=== PATIENT | male | born 1985 | race African-American/Black ===

== ENCOUNTER 2020-04-22 16:19 | Inpatient (IN) | payer MEDICAID, OTHER ==
[~2020-04-22] VITALS: Ht 188 cm; Wt 116.6 kg
[2020-04-22] MEDS ORDERED: ALBUTEROL 90 MCG/ACT 8GM HFA INHALER INH ONE (16:45)
[2020-04-22 16:59] LABS: BASO # 0.1 10^3/uL (0.0-0.2); EOS # 0.5 10^3/uL (0.0-0.5); EOS % 8.9 % (0.0-3.0); HEMATOCRIT 44.4 % (42.0-52.0); HEMOGLOBIN 14.2 g/dl (13.5-17.5); LYMPH # 1.8 10^3/uL (1.5-5.0); LYMPH % 28.7 % (24.0-44.0); MEAN CORPUSCULAR HEMOGLOBIN 26.3 pg (27.0-33.0); MEAN CORPUSCULAR VOLUME 82.2 fl (80.0-96.0); MONO # 0.5 10^3/uL (0.0-0.8); MONO % 7.9 % (0.0-5.0); NEUTROPHILS # 3.3 10^3/uL (1.5-8.5); NEUTROPHILS % 53.3 % (36.0-66.0); PLATELET COUNT, AUTOMATED 259 10^3/uL (150-450); WHITE BLOOD COUNT 6.1 10^3/uL (4.0-10.0)
[2020-04-22 17:16] LABS: BLOOD UREA NITROGEN 17 MG/DL (7-18); CALCIUM LEVEL 9.4 MG/DL (8.5-10.1); CARBON DIOXIDE LEVEL 26 MEQ/L (21-32); CHLORIDE LEVEL 107 MEQ/L (98-107); CREATININE FOR GFR 0.91 MG/DL (0.70-1.30); GLOMERULAR FILTRATION RATE > 60.0 (>60); GLUCOSE, FASTING 86 MG/DL (70-100); POTASSIUM SERUM 3.9 MEQ/L (3.5-5.1); SODIUM LEVEL 141 MEQ/L (136-145)
[2020-04-22] MEDS ORDERED: ISOVUE-370 76% 100ML VIAL As Ordered ONE (17:19)
--- NOTE | 2020-04-22 18:15 | REPVR ---
PROCEDURE INFORMATION: Exam: CT Chest With Contrast Exam date and time: 04/22/2020 5:28 PM Age: 34 years old Clinical indication: Abnormal findings; Abnormal radiologic exam of lung or chest; Shortness of breath and wheezing; Additional info: SOB, wheezing, XR today shows lll collapse TECHNIQUE: Imaging protocol: Computed tomography of the chest with intravenous contrast. 3D rendering (Not supervised by radiologist): MIP and/or 3D reconstructed images were created by the technologist. Radiation optimization: All CT scans at this facility use at least one of these dose optimization techniques: automated exposure control; mA and/or kV adjustment per patient size (includes targeted exams where dose is matched to clinical indication); or iterative reconstruction. Contrast material: ISOVUE 370; Contrast volume: 75 ml; Contrast route: INTRAVENOUS (IV); COMPARISON: AR Chest, 2 view PA, Lat 04/22/2020 9:22 AM FINDINGS: Lungs: There is complete atelectasis of the left lower lobe. There is abnormal soft tissue completely obstructing the left lower lobe bronchus. This extends into the left main bronchus which is almost completely obstructed. This has a polypoid appearance, series 203 images 54-56. Pleural space: Unremarkable. No pneumothorax. No pleural effusion. Heart: Unremarkable. No cardiomegaly. No pericardial effusion. Pulmonary arteries: There are no pulmonary artery emboli. Aorta: No thoracic aortic aneurysm or dissection. Lymph nodes: Unremarkable. No enlarged lymph nodes. Bones/joints: Unremarkable. No acute fracture. Soft tissues: Unremarkable. IMPRESSION: Complete atelectasis of the left lower lobe. There is abnormal soft tissue density within the left lower lobe bronchus extending into the left mainstem bronchus which is almost completely occluded. The appearance within the left lower lobe bronchus could represent mucoid impaction. The extension into the left main stem bronchus has a rounded appearance which appears polypoid and is suspicious for a mass. Further evaluation will likely require bronchoscopy. Electronically signed by: Jamal Colby On 04/22/2020 18:15:24 PM
[2020-04-22] MEDS ORDERED: IPRATROPIUM 0.5MG/ALBUTEROL 2.5MG INH SOL UD 3ML (DUONEB) NEB PRN (18:45)
[2020-04-22] MEDS ORDERED: methylPREDNISolone 125MG 2ML VIAL IV ONE (18:45)
[2020-04-22] MEDS ORDERED: PROAAER10 INH (19:09)
[2020-04-22] MEDS ORDERED: ALB2.5NEB INH (19:09)
--- NOTE | 2020-04-22 19:29 | HPEPDOC ---
[facility] Medical History & Physical Date of Admission Apr 22, 2020 Date of Service: Apr 22, 2020 Other Provider Elias MEZA Attending Physician: GRACIELA ALEJANDRE MD History and Physical TIME OF SERVICE: 745pm CHIEF COMPLAINT: Shortness of breath HISTORY OF PRESENT ILLNESS: This 34-year-old, smoker, has been having a productive cough for the last year. Over the last week he had difficulties coughing up any sputum and developed wheezing that was worse with exertion. At the [facility] facility, he had an x- ray which showed left lower lobe collapse and was sent to the ER for additional testing. He has a history of childhood asthma which is been under control for the last several years; he rarely uses an inhaler takes his best peak flow is in the "yellow zone". In the ER he received albuterol, DuoNeb's, and Solu-Medrol but is still wheezing. REVIEW OF SYSTEMS: 12 point review of systems negative except as listed in HPI PAST MEDICAL/ SURGICAL HISTORY: Childhood Asthma Seasonal allergies SOCIAL HISTORY: Former smoker Drains alcohol socially Denies recreational drug use FAMILY HISTORY: Hypertension ALLERGIES: Please see below. HOME MEDICATIONS: Please see below. PHYSICAL EXAMINATION: VITAL SIGNS: Please see below. PEAK FLOW: best bedside peak flow 450 L/min (expected for height and age is approximately 635 L/min) GEN: well nourished / well developed/ NAD INTEGUMENT: lips not cyanotic HEENT: mucus membranes moist and pink / sclera anicteric CVS: RRR/ radial pulses intact / no lower extremity edema LUNGS: there is no nasal flaring / he is able to speak full sentences without stopping to take a breath / he is not using accessory muscles / there is normal respiratory expansion/ he has prominent expiratory wheezing MSK/EXTREMITIES: NCAT / wrists and ankles are in cuffs NEURO: CN 2-12 are grossly intact / speech is not dysarthric PSYCH: alert and oriented to person place and time/ able to understand and follow all commands LABORATORY DATA: 04/22/20 16:48 Immature Granulocyte % (Auto) 0.2, Neutrophils (%) (Auto) 53.3, Lymphocytes (%) (Auto) 28.7, Monocytes (%) (Auto) 7.9H, Eosinophils (%) (Auto) 8.9H, Basophils (%) (Auto) 1.0, Neutrophils # (Auto) 3.3, Lymphocytes # (Auto) 1.8, Monocytes # (Auto) 0.5, Eosinophils # (Auto) 0.5, Basophils # (Auto) 0.1, Nucleated Red Blood Cells % (auto) 0.0, Anion Gap 8, Glomerular Filtration Rate > 60.0, Calcium Level 9.4 04/22/20 19:05: POC pH (Misc Panel) 7.387, POC Base Excess (Misc Panel) -2.0, POC Saturated Percent O2 (Misc) 95, POC pO2 (Misc Panel) 77.0L, POC pCO2 (Misc Panel) 39.0, POC HCO3 (Misc Panel) 23.5, POC Total CO2 (Misc Panel) 25.0 IMAGING: CT chest "IMPRESSION: Complete atelectasis of the left lower lobe. There is abnormal soft tissue density within the left lower lobe bronchus extending into the left mainstem bronchus which is almost completely occluded. The appearance within the left lower lobe bronchus could represent mucoid impaction. The extension into the left main stem bronchus has a rounded appearance which appears polypoid and is suspicious for a mass. Further evaluation will likely require bronchoscopy." MICROBIOLOGY: 04/22/20 Respiratory Virus Panel (PCR) ([facility]), Received Pending ASSESSMENT: Mr. Newman is a 34-year-old former smoker with a history of childhood asthma, seasonal allergies who has noticed a change in his chronic productive cough and wheezing over the last week. He was sent from the [facility] facility for evaluation of left lower lung collapse; CT showed complete collapse of the left lower lobe with a soft tissue density that is suspicious for mass. PLAN: 1. Mild Acute Asthma Trigger possibly bronchospasm? Peak flow today is about 70% of expected (450L/min vs expected 635 L/min for age and height) Peripheral smear showed 8.9% eosinphils ABG was only remarkable for a PO2 of 77 O2 sats wnl on RA Reason to admit: patient has risk factor for relapse Plan: admit to med surg w telemetry & continuos pulse ox / IV Magnesium now / supplemental O2 / monitor peak flow after neb treatments / Dunebs Q6H, Albuterol Q1H PRN/ Prednisone w PPI to prevent steroid induced ulcer / f/u respiratory panel results 2 Complete LLL atelectasis w possible obstructing mass vs mucus plug Plan: Chest PT w nebs tonight / Consulted for possible bronch 3 High BMI Suspect the patient's high BMI 34.1 is because of his muscle mass rather than d ue to obesity Plan: f/u A1C DVT Px w Lovenox Dispo:will be released into police custody after more than 2 midnight's stay Home Medications Scheduled PRN Albuterol Sulfate (Albuterol Sulfate) 2.5 Mg/0.5 Ml Vial.neb, 2.5 MG INH Q4H PRN for SHORTNESS OF BREATH Albuterol Sulfate (Proair Hfa) 8.5 Gm Hfa.aer.ad, 2 PUFF INH Q4H PRN for S HORTNESS OF BREATH Allergies Coded Allergies: shellfish derived (Verified Allergy, Mild, SWELLING, 04/22/20) A-FIB/CHADSVASC A-FIB History Current/History of A-Fib/PAF?: No Current PO Anticoag Therapy: No GRACIELA ALEJANDRE MD Apr 22, 2020 19:29
[2020-04-22] MEDS ORDERED: ACETAMINOPHEN TAB 650MG DOSE (2X325MG) PO PRN (19:30)
[2020-04-22] MEDS ORDERED: MOM 30ML SUSPENSION UDC PO PRN (19:30)
[2020-04-22] MEDS ORDERED: MAALOX 30 ML SUSP *UDC PO PRN (19:30)
[2020-04-22] MEDS ORDERED: MAG SULF 1GM/100ML (MAG RUN) 1 GM in IV 1 EA IV ONE (19:45)
[2020-04-22 21:15] VITALS: BP 122/88
[2020-04-22] MEDS: IPRATROPIUM 0.5MG/ALBUTEROL 2.5MG INH SOL UD 3ML (DUONEB) NEB SCH (21:32)
[2020-04-22 22:00] VITALS: O2SAT 93
[2020-04-22 23:00] VITALS: O2SAT 97
[2020-04-23] VITALS (11 sets, daily range): BP systolic 116–144; BP diastolic 68–80; O2SAT 77–98
[2020-04-23] MEDS: IPRATROPIUM 0.5MG/ALBUTEROL 2.5MG INH SOL UD 3ML (DUONEB) NEB SCH ×7 (01:49→23:41)
[2020-04-23 05:05] LABS: HEMATOCRIT 44.1 % (42.0-52.0); HEMOGLOBIN 14.1 g/dl (13.5-17.5); MEAN CORPUSCULAR HEMOGLOBIN 26.1 pg (27.0-33.0); MEAN CORPUSCULAR VOLUME 81.7 fl (80.0-96.0); PLATELET COUNT, AUTOMATED 259 10^3/uL (150-450)
[2020-04-23 05:25] LABS: BLOOD UREA NITROGEN 14 MG/DL (7-18); CARBON DIOXIDE LEVEL 24 MEQ/L (21-32); CHLORIDE LEVEL 107 MEQ/L (98-107); CREATININE FOR GFR 0.97 MG/DL (0.70-1.30); GLOMERULAR FILTRATION RATE > 60.0 (>60); GLUCOSE, FASTING 124 MG/DL (70-100); SODIUM LEVEL 139 MEQ/L (136-145)
--- NOTE | 2020-04-23 08:21 | IPNPDOC ---
Subjective Date Seen The patient was seen on 04/23/20. Subjective Chief Complaint/HPI Continues to have wheezing and feels that unable to catch his breath. Has some cough with phlegm production. No fever or chills. Objective Physical Examination General Exam: Positive: Alert, Cooperative, No Acute Distress Eye Exam: Positive: PERRLA, Conjunctiva & lids normal, EOMI; Negative: Sclera icteric ENT Exam: Positive: Atraumatic, Mucous membr. moist/pink, Pharynx Normal Neck Exam: Positive: Supple; Negative: JVD, thyromegaly Chest Exam: Positive: Rales, Rhonchi, Wheezing Heart Exam: Positive: Bradycardic, Regular Rhythm, Normal S1, Normal S2; Negative: Murmurs, Rubs Telemetry: Positive: No significant arrhythmia Abdomen Exam: Positive: Normal bowel sounds, Soft; Negative: Tenderness, Hepatospenomegaly Extremity Exam: Positive: Normal pulses; Negative: Clubbing, Cyanosis, Edema Skin Exam: Positive: Nl turgor and temperature; Negative: Rash, Breakdown Assessment /Plan Assessment Mr. Newman is a 34-year-old former smoker with a history of childhood asthma, seasonal allergies who has noticed a change in his chronic productive cough and wheezing over the last week. He was sent from the [facility] facility for evaluation of left lower lung collapse; CT showed complete collapse of the left lower lobe with a soft tissue density that is suspicious for mass. Mild Acute Asthma resp panel negative will continue with albuterol and budesonide Complete LLL atelectasis w possible obstructing mass vs mucus plug IMAGING: CT chest "IMPRESSION: Complete atelectasis of the left lower lobe. There is abnormal soft tissue density within the left lower lobe bronchus extending into the left mainstem bronchus which is almost completely occluded. The appearance within the left lower lobe bronchus could represent mucoid impaction. The extension into the left main stem bronchus has a rounded appearance which appears polypoid and is suspicious for a mass. Further evaluation will likely require bronchoscopy." Pulmonary has been consulted. Will need bronchoscopy. Sinus Bradycardia due to extremely well physical conditioning he work out regularly and has good muscle mass. Plan/VTE VTE Prophylaxis Ordered?: Yes VS, I&O, 24H, Fishbone Vital Signs/I&O Vital Signs Date Time Temp Pulse Resp B/P (MAP) Pulse Ox O2 Delivery O2 Flow Rate FiO2 04/23/20 08:01 2.0 04/23/20 07:00 96 Nasal Cannula 04/23/20 04:00 97.0 50 18 132/74 (93) I&O- Last 24 Hours up to 6 AM 04/23/20 06:00 Intake Total 900 ml Output Total 1450 ml Balance -550 ml Laboratory Data 24H LABS Laboratory Tests 2 04/22/20 16:48: Immature Granulocyte % (Auto) 0.2, Neutrophils (%) (Auto) 53.3, Lymphocytes (%) (Auto) 28.7, Monocytes (%) (Auto) 7.9H, Eosinophils (%) (Auto) 8.9H, Basophils (%) (Auto) 1.0, Neutrophils # (Auto) 3.3, Lymphocytes # (Auto) 1.8, Monocytes # (Auto) 0.5, Eosinophils # (Auto) 0.5, Basophils # (Auto) 0.1, Nucleated Red Blood Cells % (auto) 0.0, Anion Gap 8, Glomerular Filtration Rate > 60.0, Calcium Level 9.4 04/22/20 19:05: POC pH (Misc Panel) 7.387, POC Base Excess (Misc Panel) -2.0, POC Saturated Percent O2 (Misc) 95, POC pO2 (Misc Panel) 77.0L, POC pCO2 (Misc Panel) 39.0, POC HCO3 (Misc Panel) 23.5, POC Total CO2 (Misc Panel) 25.0 04/23/20 04:47: Nucleated Red Blood Cells % (auto) 0.0, Anion Gap 8, Glomerular Filtration Rate > 60.0, Calcium Level 9.0, Magnesium Level 2.0 CBC/BMP Laboratory Tests 04/22/20 16:48 04/23/20 04:47 Microbiology Microbiology 04/22/20 Respiratory Virus Panel (PCR) ([facility]) - Final, Complete SUDEEP PATEL MD Apr 23, 2020 08:21
[2020-04-23] MEDS: predniSONE 20 MG TAB PO SCH (08:49)
[2020-04-23] MEDS: PANTOPRAZOLE 40MG TAB (PROTONIX) PO SCH (08:49)
[2020-04-23] MEDS ORDERED: ENOXAPARIN 40MG/0.4ML SYRINGE (J1650 PER 10MG) SC SCH (09:00)
[2020-04-23] MEDS: ALBUTEROL SULFATE 2.5 MG/0.5 ML INH NEB SOLN NEB PRN ×2 (11:44→15:02)
[2020-04-23] MEDS: BUDESONIDE 0.5 MG/2 ML INHALATION SUSPENSION INH SCH ×2 (11:44→19:31)
[2020-04-23 13:13] LABS: PARTIAL THROMBOPLASTIN TIME 30.7 SECONDS (24.2-38.5)
[2020-04-23 13:16] LABS: PROTHROMBIN TIME 13.4 SECONDS (12.5-14.3)
[2020-04-24] VITALS: BP 137/78
[2020-04-24 04:00] VITALS: BP 158/78
[2020-04-24] MEDS: IPRATROPIUM 0.5MG/ALBUTEROL 2.5MG INH SOL UD 3ML (DUONEB) NEB SCH ×6 (04:09→23:09)
[2020-04-24 06:31] LABS: BLOOD UREA NITROGEN 16 MG/DL (7-18); CALCIUM LEVEL 8.6 MG/DL (8.5-10.1); CARBON DIOXIDE LEVEL 28 MEQ/L (21-32); CHLORIDE LEVEL 108 MEQ/L (98-107); CREATININE FOR GFR 1.07 MG/DL (0.70-1.30); GLOMERULAR FILTRATION RATE > 60.0 (>60); GLUCOSE, FASTING 95 MG/DL (70-100); POTASSIUM SERUM 3.7 MEQ/L (3.5-5.1); SODIUM LEVEL 142 MEQ/L (136-145)
[2020-04-24] MEDS: BUDESONIDE 0.5 MG/2 ML INHALATION SUSPENSION INH SCH ×2 (07:11→19:48)
[2020-04-24 08:00] VITALS: BP 150/76
[2020-04-24] MEDS: predniSONE 20 MG TAB PO SCH (08:50)
[2020-04-24] MEDS: PANTOPRAZOLE 40MG TAB (PROTONIX) PO SCH (08:50)
--- NOTE | 2020-04-24 09:57 | IPNPDOC ---
Subjective Date Seen The patient was seen on 04/24/20. Subjective Chief Complaint/HPI No issues overnight. Still has wheezing. SOB a little better Objective Physical Examination General Exam: Positive: Alert, Cooperative, No Acute Distress Eye Exam: Positive: PERRLA, Conjunctiva & lids normal, EOMI; Negative: Sclera icteric ENT Exam: Positive: Atraumatic, Mucous membr. moist/pink, Pharynx Normal Neck Exam: Positive: Supple; Negative: JVD, thyromegaly Chest Exam: Positive: Rales, Rhonchi, Wheezing Heart Exam: Positive: Bradycardic, Regular Rhythm, Normal S1, Normal S2; Negative: Murmurs, Rubs Telemetry: Positive: No significant arrhythmia Abdomen Exam: Positive: Normal bowel sounds, Soft; Negative: Tenderness, Hepatospenomegaly Extremity Exam: Positive: Normal pulses; Negative: Clubbing, Cyanosis, Edema Skin Exam: Positive: Nl turgor and temperature; Negative: Rash, Breakdown Assessment /Plan Assessment Mr. Newman is a 34-year-old former smoker with a history of childhood asthma, seasonal allergies who has noticed a change in his chronic productive cough and wheezing over the last week. [facility] of left lower lung collapse; CT showed complete collapse of the left lower lobe with a soft tissue density that is suspicious for mass. Mild Acute Asthma resp panel negative will continue with albuterol and budesonide Complete LLL atelectasis and collapse w possible obstructing mass vs mucus plug IMAGING: CT chest "IMPRESSION: Complete atelectasis of the left lower lobe. There is abnormal soft tissue density within the left lower lobe bronchus extending into the left mainstem bronchus which is almost completely occluded. The appearance within the left lower lobe bronchus could represent mucoid impaction. The extension into the left main stem bronchus has a rounded appearance which appears polypoid and is suspicious for a mass. Further evaluation will likely require bronchoscopy." Pulmonary has been consulted. bronchoscopy for 04/25/20 Plan/VTE VTE Prophylaxis Ordered?: Yes VS, I&O, 24H, Fishbone Vital Signs/I&O Vital Signs Date Time Temp Pulse Resp B/P (MAP) Pulse Ox O2 Delivery O2 Flow Rate FiO2 04/24/20 04:00 97.9 74 18 158/78 (104) 99 Room Air 04/24/20 04:00 2.0 I&O- Last 24 Hours up to 6 AM 04/24/20 06:59 Intake Total 1260 ml Output Total 2900 ml Balance -1640 ml Laboratory Data 24H LABS Laboratory Tests 2 04/23/20 12:38: Prothrombin Time 13.4, Prothromb Time International Ratio 1.00, Activated Partial Thromboplast Time 30.7 04/24/20 05:23: Anion Gap 6L, Glomerular Filtration Rate > 60.0, Calcium Level 8.6 CBC/BMP Laboratory Tests 04/24/20 05:23 Microbiology Microbiology 04/23/20 Gram Stain - Final, Resulted 04/23/20 Sputum Culture, Resulted Pending 04/22/20 Respiratory Virus Panel (PCR) ([facility]) - Final, Complete SUDEEP PATEL MD Apr 24, 2020 07:49
[2020-04-24 16:00] VITALS: BP 150/76
[2020-04-24 20:00] VITALS: BP 132/70
[2020-04-25] VITALS (8 sets, daily range): BP systolic 124–150; BP diastolic 62–92
[2020-04-25] MEDS: IPRATROPIUM 0.5MG/ALBUTEROL 2.5MG INH SOL UD 3ML (DUONEB) NEB SCH ×6 (03:14→22:56)
[2020-04-25 06:43] LABS: HEMATOCRIT 43.5 % (42.0-52.0); HEMOGLOBIN 13.7 g/dl (13.5-17.5); MEAN CORPUSCULAR HEMOGLOBIN 26.4 pg (27.0-33.0); MEAN CORPUSCULAR HGB CONC 31.5 g/dl (32.0-36.5); MEAN CORPUSCULAR VOLUME 83.8 fl (80.0-96.0); PLATELET COUNT, AUTOMATED 238 10^3/uL (150-450); RED BLOOD COUNT 5.19 10^6/uL (4.30-6.10); WHITE BLOOD COUNT 9.6 10^3/uL (4.0-10.0)
[2020-04-25] MEDS: BUDESONIDE 0.5 MG/2 ML INHALATION SUSPENSION INH SCH ×2 (07:10→19:14)
[2020-04-25] MEDS ORDERED: MIDAZOLAM INJ 2MG/2ML VIAL (J2250 PER 1MG) As Ordered ONE (10:14)
[2020-04-25] MEDS ORDERED: fentaNYL 100 MCG/2 ML INJECTION (J3010) As Ordered ONE ×2 (10:15→11:00)
[2020-04-25] MEDS ORDERED: EPINEPHrine 1MG/10ML SYRINGE 1.5IN As Ordered ONE (10:18)
[2020-04-25] MEDS ORDERED: CETACAINE SPRAY 5GM As Ordered ONE (10:18)
[2020-04-25] MEDS ORDERED: LIDOCAINE 1% MDV 20ML VIAL As Ordered ONE (10:18)
[2020-04-25] MEDS ORDERED: ROCURONIUM BROMIDE 50 MG/5 ML VIAL As Ordered ONE ×2 (10:19→11:03)
[2020-04-25] MEDS ORDERED: propofoL 200 MG/20 ML VIAL As Ordered ONE ×2 (10:19→10:47)
[2020-04-25] MEDS ORDERED: LIDOCAINE 2% 100MG/5ML SDV (FOR ANES.) As Ordered ONE (10:19)
[2020-04-25] MEDS ORDERED: dexameTHASONE 4 MG/ML 1ML VIAL (J1100 PER 1MG) As Ordered ONE (10:20)
[2020-04-25] MEDS ORDERED: THROMBIN SOLN 5,000 UNITS VIAL As Ordered ONE (10:27)
[2020-04-25] MEDS ORDERED: SUGAMMADEX SODIUM 500 MG/5 ML VIAL (BRIDION) As Ordered ONE (11:01)
[2020-04-25] MEDS ORDERED: ONDANSETRON 4MG/2ML VIAL As Ordered ONE (11:01)
[2020-04-25] MEDS ORDERED: fentaNYL 100 MCG/2 ML INJECTION (J3010) IV PRN (12:30)
[2020-04-25] MEDS ORDERED: LR 1,000 ML IV SCH (12:30)
[2020-04-25] MEDS ORDERED: ONDANSETRON 4MG/2ML VIAL IV PRN (12:30)
[2020-04-25] MEDS ORDERED: METOCLOPRAMIDE INJ 10MG/2ML VIAL (J2765 PER 1) IV PRN (12:30)
--- NOTE | 2020-04-25 13:11 | IPNPDOC ---
Subjective Date Seen The patient was seen on 04/25/20. Subjective Chief Complaint/HPI SOB improving, still has wheezing but less. Right chest clear. Left still with wheezing. Has some cough with phlegm Objective Physical Examination General Exam: Positive: Alert, Cooperative, No Acute Distress Eye Exam: Positive: PERRLA, Conjunctiva & lids normal, EOMI; Negative: Sclera icteric ENT Exam: Positive: Atraumatic, Mucous membr. moist/pink, Pharynx Normal Neck Exam: Positive: Supple; Negative: JVD, thyromegaly Chest Exam: Positive: Rales (left), Rhonchi (left), Wheezing (left) Heart Exam: Positive: Bradycardic, Regular Rhythm, Normal S1, Normal S2; Negative: Murmurs, Rubs Telemetry: Positive: No significant arrhythmia Abdomen Exam: Positive: Normal bowel sounds, Soft; Negative: Tenderness, Hepatospenomegaly Extremity Exam: Positive: Normal pulses; Negative: Clubbing, Cyanosis, Edema Skin Exam: Positive: Nl turgor and temperature; Negative: Rash, Breakdown Assessment /Plan Assessment Mr. Newman is a 34-year-old former smoker with a history of childhood asthma, seasonal allergies who has noticed a change in his chronic productive cough and wheezing over the last week. He was sent from the [facility] facility for evaluation of left lower lung collapse; CT showed complete collapse of the left lower lobe with a soft tissue density that is suspicious for mass. Mild Acute Asthma resp panel negative will continue with albuterol and budesonide Complete LLL atelectasis and collapse w possible obstructing mass vs mucus plug IMAGING: CT chest "IMPRESSION: Complete atelectasis of the left lower lobe. There is abnormal soft tissue density within the left lower lobe bronchus extending into the left mainstem bronchus which is almost completely occluded. The appearance within the left lower lobe bronchus could represent mucoid impaction. The extension into the left main stem bronchus has a rounded appearance which appears polypoid and is suspicious for a mass. Further evaluation will likely require bronchoscopy." Pulmonary has been consulted. bronchoscopy for 04/25/20 Plan/VTE VTE Prophylaxis Ordered?: Yes VS, I&O, 24H, Fishbone Vital Signs/I&O Vital Signs Date Time Temp Pulse Resp B/P (MAP) Pulse Ox O2 Delivery O2 Flow Rate FiO2 04/25/20 08:00 98.0 64 18 150/90 (110) 99 Room Air 04/24/20 04:00 2.0 I&O- Last 24 Hours up to 6 AM 04/25/20 07:00 Intake Total 1920 ml Output Total 2700 ml Balance -780 ml Laboratory Data 24H LABS Laboratory Tests 2 04/25/20 05:49: Nucleated Red Blood Cells % (auto) 0.0 CBC/BMP Laboratory Tests 04/25/20 05:49 Microbiology Microbiology 04/23/20 Gram Stain - Final, Resulted 04/23/20 Sputum Culture, Resulted Pending 04/22/20 Respiratory Virus Panel (PCR) ([facility]) - Final, Complete SUDEEP PATEL MD Apr 25, 2020 08:17
[2020-04-25] MEDS: predniSONE 20 MG TAB PO SCH (14:10)
[2020-04-25] MEDS: PANTOPRAZOLE 40MG TAB (PROTONIX) PO SCH (14:10)
[2020-04-25] MEDS ORDERED: ACETYLCYSTEINE 10% 30 ML VIAL INH SCH (20:00)
[2020-04-25] MEDS: ACETYLCYSTEINE 20% 4 ML VIAL (200MG/ML) INH SCH (20:29)
[2020-04-26] MEDS: IPRATROPIUM 0.5MG/ALBUTEROL 2.5MG INH SOL UD 3ML (DUONEB) NEB SCH ×6 (03:53→23:16)
[2020-04-26 06:00] VITALS: BP 128/81
[2020-04-26] MEDS: ACETYLCYSTEINE 20% 4 ML VIAL (200MG/ML) INH SCH ×2 (07:26→19:06)
[2020-04-26] MEDS: BUDESONIDE 0.5 MG/2 ML INHALATION SUSPENSION INH SCH ×2 (07:26→19:06)
[2020-04-26] MEDS: PANTOPRAZOLE 40MG TAB (PROTONIX) PO SCH (08:41)
[2020-04-26] MEDS: predniSONE 20 MG TAB PO SCH (08:42)
--- NOTE | 2020-04-26 10:26 | REPVR ---
PROCEDURE INFORMATION: Exam: CT Chest Without Contrast Exam date and time: 04/26/2020 9:43 AM Age: 34 years old Clinical indication: Other: Atelectasis TECHNIQUE: Imaging protocol: Computed tomography of the chest without contrast. 3D rendering (Not supervised by radiologist): MIP and/or 3D reconstructed images were created by the technologist. Radiation optimization: All CT scans at this facility use at least one of these dose optimization techniques: automated exposure control; mA and/or kV adjustment per patient size (includes targeted exams where dose is matched to clinical indication); or iterative reconstruction. COMPARISON: CT Chest with contrast 04/22/2020 5:22 PM FINDINGS: Lungs: Central airways are patent. There has been improved aeration of the left lower lobe which has shown partial re-expansion. There is a moderate degree of residual atelectatic consolidation and associated volume loss. The lungs are otherwise well expanded and clear. Pleural space: Trace left pleural effusion which extends into the oblique fissure. Heart: Unremarkable. No cardiomegaly. No pericardial effusion. Aorta: Unremarkable. No aortic aneurysm. Lymph nodes: Unremarkable. No enlarged lymph nodes. Bones/joints: Bones are stable. No acute fracture. Soft tissues: Stable. Gynecomastia again noted. IMPRESSION: There has been improved aeration of the left lower lobe which has shown partial re-expansion. There is a moderate degree of residual atelectatic consolidation and associated volume loss. Continued follow-up is recommended to ensure complete resolution. Electronically signed by: Armani Melton On 04/26/2020 10:26:19 AM
--- NOTE | 2020-04-26 13:27 | IPNPDOC ---
Text Note Date of Service The patient was seen on 04/26/20. NOTE Subjective: Pt feels well. Denies CP/SOB/palpitations. No N/V/Abd pain. Objective: Vitals: (see below) General: No acute distress, laying comfortably in bed. HEENT: Moist mucous membranes. Neck: No JVD or lymphadenopathy Cardiac: RRR, No murmurs Pulm: Clear to auscultation b/l. No wheezing, rhonchi Abd: NT/ND + BS Ext: No edema or cyanosis Labs (see below) Assessment/Plan 1. Acute Asthma Exacerbation resp panel negative will continue with albuterol and budesonide 2. Complete LLL atelectasis and collapse w possible obstructing mass vs mucus plug IMAGING: CT chest "IMPRESSION: Complete atelectasis of the left lower lobe. There is abnormal soft tissue density within the left lower lobe bronchus extending into the left mainstem bronchus which is almost completely occluded. The appearance within the left lower lobe bronchus could represent mucoid impaction. The extension into the l eft main stem bronchus has a rounded appearance which appears polypoid and is suspicious for a mass. Further evaluation will likely require bronchoscopy." - s/p bronchoscopy for 04/25/[address] Og - Planned for repeat CT Chest today - Studies pending from bronch - Appreciate Dr. Roblero's input DVT Prophy: SCDs/oob ambulate. VS,Fishbone, I+O VS, Fishbone, I+O Vital Signs Date Time Temp Pulse Resp B/P (MAP) Pulse Ox O2 Delivery O2 Flow Rate FiO2 04/26/20 06:00 98.4 72 18 128/81 (97) 99 04/25/20 19:40 1.0 04/25/20 16:22 Room Air I&O- Last 24 Hours up to 6 AM 04/26/20 06:00 Intake Total 2700 ml Output Total 2900 ml Balance -200 ml TYSON BRIAN MD Apr 26, 2020 13:27
[2020-04-26 14:00] VITALS: BP 146/72
[2020-04-26 22:00] VITALS: BP 138/68
[2020-04-27] MEDS: IPRATROPIUM 0.5MG/ALBUTEROL 2.5MG INH SOL UD 3ML (DUONEB) NEB SCH ×3 (03:33→11:41)
[2020-04-27 06:00] VITALS: BP 128/72
[2020-04-27] MEDS: BUDESONIDE 0.5 MG/2 ML INHALATION SUSPENSION INH SCH (07:26)
[2020-04-27] MEDS: ACETYLCYSTEINE 20% 4 ML VIAL (200MG/ML) INH SCH (07:26)
[2020-04-27] MEDS: PANTOPRAZOLE 40MG TAB (PROTONIX) PO SCH (09:28)
[2020-04-27] MEDS: predniSONE 20 MG TAB PO SCH (09:28)
[2020-04-27] MEDS ORDERED: SYMB80INH INH (10:19)
[2020-04-27] MEDS ORDERED: PRED10TA2 PO (10:19)
[2020-04-27] MEDS ORDERED: PANT40TA29 PO (10:19)
--- NOTE | 2020-04-27 15:39 | DS.PDOC ---
Discharge Summary General Date of Admission Apr 22, 2020 at 19:24 Date of Discharge 04/27/20 Attending Physician: TYSON BRIAN MD Specialist/Consultants Involve: Milton Og Discharge Summary PROCEDURES PERFORMED DURING STAY: Bronch ADMITTING/DISCHARGE DIAGNOSES: 1. Acute Asthma Exacerbation 2. LLL atelectasis with collapse/mucous plug s/p bronch COMPLICATIONS/CHIEF COMPLAINT: sob HISTORY OF PRESENT ILLNESS/HOSPITAL COURSE: This 34-year-old, smoker, has been having a productive cough for the last year. Over the last week he had difficulties coughing up any sputum and developed wheezing that was worse with exertion. At the corrections facility, he had an x- ray which showed left lower lobe collapse and was sent to the ER for additional testing. He has a history of childhood asthma which is been under control for the last several years; he rarely uses an inhaler takes his best peak flow is in the "yellow zone". In the ER he received albuterol, DuoNeb's, and Solu-Medrol but is still wheezing. Pt was evaluated by Dr. Og, s/p bronch- likely mucous plug. Now doing well. Denies CP/SOB/palpitations. Discussed with Dr. Og -pt is cleared for d/c - recc long prednisone taper - 40mg x 7d, 30mg x 7d, 20mg x 7d, 10mg x 7days, then stop. Recc f/u with pulm in 1 week and repeat CXR in 1 week. Cleared for d/c. Pt ambulating and w/o hypoxia. To be d/c today to correction facility. 1. Acute Asthma Exacerbation resp panel negative will continue with albuterol and budesonide 2. Complete LLL atelectasis and collapse w possible obstructing mass vs mucus plug IMAGING: CT chest "IMPRESSION: Complete atelectasis of the left lower lobe. There is abnormal soft tissue density within the left lower lobe bronchus extending into the left mainstem bronchus which is almost completely occluded. The appearance within the left lower lobe bronchus could represent mucoid impaction. The extension into the left main stem bronchus has a rounded appearance which appears polypoid and is suspicious for a mass. Further evaluation will likely require bronchoscopy." - s/p bronchoscopy for 04/25/[address] Og - Planned for repeat CT Chest today - Studies pending from bronch - Appreciate Dr. Roblero's input DISCHARGE MEDICATIONS: Please see below. ALLERGIES: Please see below. PHYSICAL EXAMINATION ON DISCHARGE: Vitals: (see below) General: No acute distress, laying comfortably in bed. HEENT: Moist mucous membranes. Neck: No JVD or lymphadenopathy Cardiac: RRR, No murmurs Pulm: Clear to auscultation b/l. No wheezing, rhonchi Abd: NT/ND + BS Ext: No edema or cyanosis LABORATORY DATA: Please see below. PROGNOSIS: Good ACTIVITY: As tolerated. DIET: Regular DISCHARGE PLAN/DISPOSITION: D/c to [facility] facility DISCHARGE INSTRUCTIONS: 1. F/u with PCP and Pulmonary in 1 week. Return to ED if symptoms worsen. Will need to continue prednisone taper and need a repeat CXR in 1 week. DISCHARGE CONDITION: Stable. TIME SPENT ON DISCHARGE: Greater than 30 minutes. Vital Signs/I&Os Vital Signs Date Time Temp Pulse Resp B/P (MAP) Pulse Ox O2 Delivery O2 Flow Rate FiO2 04/27/20 06:00 98.0 57 19 128/72 (90) 98 Room Air 04/25/20 19:40 1.0 I&O- Last 24 Hours up to 6 AM 04/27/20 06:00 Intake Total 3795 ml Balance 3795 ml Microbiology Microbiology 04/25/20 Acid Fast Stain - Final, Resulted 04/25/20 Mycobacterial Culture, Resulted Pending 04/25/20 Gram Stain - Final, Resulted 04/25/20 Bronchial Aspirate Culture, Resulted Pending 04/25/20 Fungal Smear, Received Pending 04/25/20 Fungal Culture, Received Pending 04/23/20 Gram Stain - Final, Complete 04/23/20 Sputum Culture - Final, Complete 04/22/20 Respiratory Virus Panel (PCR) ([facility]) - Final, Complete Discharge Medications Scheduled Budesonide/Formoterol (Symbicort 80-4.5 Mcg Inhaler) 6.9 Gm Hfa.aer.ad, 2 PUFF INH BID Pantoprazole Sodium (Pantoprazole Sodium) 40 Mg Tablet.dr, 40 MG PO DAILY Prednisone (Prednisone) 10 Mg Tablet, 1 TAB PO DAILY Take 4 tabs daily for 7 days, then 3 tab daily for 7 days, then 2 tab daily for 7 days, then 1 tab daily for 7 days then stop Scheduled PRN Albuterol Sulfate (Albuterol Sulfate) 2.5 Mg/0.5 Ml Vial.neb, 2.5 MG INH Q4H PRN for SHORTNESS OF BREATH, (Reported) Albuterol Sulfate (Proair Hfa) 8.5 Gm Hfa.aer.ad, 2 PUFF INH Q4H PRN for SHORTNESS OF BREATH, (Reported) Allergies Coded Allergies: shellfish derived (Verified Allergy, Mild, SWELLING, 04/22/20) TYSON BRIAN MD Apr 27, 2020 15:39
--- NOTE | 2020-04-29 09:37 | CR ---
DATE OF CONSULTATION: REQUESTING PHYSICIAN: Dr. Simmons REASON FOR CONSULTATION: Abnormal CT scan. HISTORY OF PRESENT ILLNESS: Mr. Newman is a pleasant 34-year-old gentleman currently a resident of the local correctional facility. He gives a longstanding history of asthma but has not been hospitalized since childhood. He was a smoker but quit several years ago. He said he developed a wheeze several months ago that was intermittent. He does not recall any aspiration events. He had no pain. He said he was coughing up some thick mucous at the time, only minimally discolored. No fevers or chills. No hemoptysis. He has been requiring nebulizer treatments for the last several weeks but states the wheeze does not seem to dipesh. He has noticed that he is a little more short of breath with physical activity, especially during his strenuous workouts. He was brought to the hospital for these complaints. Chest x-ray showed left lower lobe atelectasis. CT scan confirms this. He has cutoff of the bronchus of the left lower lobe but no significant adenopathy. REVIEW OF SYSTEMS: As per the HPI. Otherwise constitutional: Unremarkable for fevers, chills or sweats. HEENT: Unremarkable . Pulmonary: as per the HPI. Cardiac: Unremarkable for angina. : Unremarkable for dysuria or urgency. Neurologic: Unremarkable for seizures or strokes. GI: Unremarkable for any nausea or vomiting. Hematologic: Unremarkable for bruising or bleeding. Dermatologic: Unremarkable for rash or psoriasis. FAMILY HISTORY: Noncontributory from a pulmonary standpoint. SOCIAL HISTORY: Apparently at a correctional facility. Previous tobacco. No alcohol. ALLERGIES: Shellfish. CURRENT MEDICATIONS: * Albuterol. * Ipratropium Nebs. * Lovenox. * Prednisone. * Budesonide via nebulizer. PHYSICAL EXAMINATION: GENERAL APPEARANCE: He is a pleasant, well-developed, well-nourished gentleman, seated in bed. VITAL SIGNS: Temperature is 98.3, blood pressure 124 systolic, respiratory rate approximate 18-20 and unlabored. Heart rate 60 and regular. Pulse ox 98% on 2 liters. HEENT: Otherwise generally normocephalic and atraumatic. Mucous membranes moist. Nose and mouth are moist. NECK: Soft. Trachea is midline. CHEST: Dullness to percussion at the left base. There is a significant inspiratory wheeze, clearly localizes to the left lower lobe. Right chest is clear except for noise transmitted from the left. Expansion reasonably symmetric despite the amount. CARDIAC: Regular with no murmur or gallop. Distal pulses palpable with no edema. ABDOMEN: Soft and nontender with active bowel sounds. No organomegaly or masses. EXTREMITIES: No clubbing. NEUROLOGICAL: Awake, alert and appropriate. PSYCH: normal mood and affect. IMAGING DATA: Chest x-ray, CT scan as outlined above and I cannot at all disagree with the dictated report. LABORATORY DATA: White blood cell count 7.0, hemoglobin 14.1, platelet count 259,000, 53% segs, no bands. Sodium 139, K 4.3, chloride 107, CO2 24, BUN 14, creatinine 0.97, glucose 124. Coags are pending. IMPRESSION: * Abnormal CT scan with left lower lobe collapse. * Asthma by history. * Previous tobacco abuse. RECOMMENDATIONS: * At this point he clearly warrants fiberoptic bronchoscopy. The risks and benefits were discussed with him and consent will be signed. I will plan to do this in the O.R. under general anesthesia. As my thought process is this is either thick mucous plugging on the basis of ABPA from his asthma but certainly must be prepared for other findings. Certainly he may be at risk for malignancy despite his young age, but also unrecognized foreign body aspiration is a possibility. I see no other findings on the CT scan to suggest bronchial polyposis although this is in the differential as is carcinoid especially in view of his young age. * In the interim, we will hold his Lovenox. * Coags have been ordered. * We will make him n.p.o. after midnight the night of the for bronchoscopy the morning of the . * We will continue his steroids and nebulizers. Further recommendations will be made in the progress record as new information becomes available. CARLEEND
--- NOTE | 2020-04-29 11:02 | RO ---
DATE OF OPERATION: 04/25/2020 PREOPERATIVE DIAGNOSIS: Left lower lobe collapse. POSTOPERATIVE DIAGNOSIS: Left lower lobe collapse. PROCEDURE: Fiberoptic bronchoscopy with wash brush biopsies and photos. SURGEON: Milton Og MD ANESTHESIA: General. Informed consent was obtained prior to the procedure. OPERATIVE FINDINGS: 1. Complete obstruction of essentially the left mainstem bronchus with what appeared to be routine secretions. 2. Significant bronchiectatic changes of the distal left lower lobe. PROCEDURE. After the patient was identified and the above anesthesia given, the fiberoptic bronchoscope was easily passed through the existing endotracheal tube. The tube was somewhat high above the meghna, but was clearly in the trachea. The right lung was entered first. All segments of the middle and lower lobe were easily identified and widely patent. The meghna was sharp and moved well. The proximal left mainstem widely patent. Distally, a large white cottony type lesion was encountered. Pieces of it did come off easily with the biopsy forceps. Using a urology basket, we were then able to take large pieces of this material off. At one point, a huge portion of it actually came free. It was so large that it actually obstructed the endotracheal tube. It was pulled into the tube, the tube was pulled out in total and a new tube was replaced. This thick rubbery material measured approximately 8 cm in length. A new tube was then placed. The scope was then re-passed. Additional, very large pieces were able to be taken out. Eventually, all segments, sub-segments, except for the second or third generation sub-segment of the medial left lower lobe where I want to be cleared of thick rubbery secretions; I suspect it to be ABPA. The mucosa underneath where this material was sitting was clearly friable, but no other focal endobronchial abnormalities were identified. No significant bleeding was encountered. The patient did have one episode of desaturation of his FiO2 into the mid 80s when the first large piece of material was dislodged, but quickly recovered to 99%. The scope was then withdrawn and the procedure terminated. Care was then turned over to anesthesia for extubation. Cultures to cytology pending at the time of this dictation. Will do a chest x-ray in an hour as I suspect he will have significant improvement in his atelectasis. KEKE
--- NOTE | 2020-05-01 14:01 | IPN ---
DATE: 04/26/2020 SUBJECTIVE: I again attended Tee Newman now here on the medical/surgical floor. Patient admitted and chart reviewed. He is afebrile. Blood pressure to 130s. Heart rate 64 and regular. Respiratory rate 14-16 and unlabored. No new labs yet today. He feels much more comfortable today. He has had some intermittent cough. No wheezing. Some occasional thick what he describes as plugs and some blood-tinged sputum. PHYSICAL EXAMINATION: General: On exam he is awake, alert, appropriate and quite comfortable. Pupils react. Sclerae clear. Trachea is midline. Lungs are actually clear to both auscultation and percussion. Expansion is quite symmetric today. No focal adventitious breath sounds are identified. Cardiac exam is regular. Peripheral pulses palpable, no edema. Abdomen is soft and nontender with active bowel sounds, no convincing organomegaly or masses. Extremities with no cyanosis or clubbing. Neurologically he is awake, alert, and appropriate. Psychiatric: He has a normal mood and affect. Pathology and microbiology from yesterday are pending. Chest x-ray does show improved aeration at the left base done immediately post- procedure. IMPRESSION: 1. 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 2. Asthma with suboptimal control. 3. History of tobacco abuse. RECOMMENDATIONS: At this point he has significant mucus plugging and inspissated secretions. In view of his asthma, this quite likely is ABPA. He has no signs of systemic disease and therefore for now treatment is mucolytics, expectorants, and augmented pulmonary toilet with aggressive steroids. A long discussion was had with him in that regard. We will repeat a CT scan either today or tomorrow. It is my hope we can avoid repeat bronchoscopy. What little plugs we were unable to get out were all small and distal and my hope is that now with the above interventions he will be able to expectorate those. We await the final culture to make sure there is not a secondary infection. At this point we will continue as outlined above. We await the outcome of the above interventions as far as further labs and imaging. Further recommendations will be made in the progress records as new information becomes available. KEKE
--- NOTE | 2020-05-01 14:03 | REP ---
PORTABLE CHEST X-RAY: SINGLE VIEW HISTORY: Status post bronchoscopy. COMPARISON CHEST X-RAY: 04/22/2020. FINDINGS: Todays PA chest x-ray demonstrates lobar atelectasis in the left lower lobe again noted. There is a small quantity of air bronchogram in this infrahilar level. Otherwise, findings are unchanged. There is no evidence of pneumothorax or other complication. Right lung remains clear. IMPRESSION: Persistent lobar atelectasis, left lower lobe. No complication seen. MTDD
== END 2020-04-27 12:40 | DRG 141 ==
LOC: M ED 16:19 → M PCU 19:24 → ENRESERV 19:56 → M MSPAV 04-25 16:02
PROVIDERS: ADMIT Internal Medicine; ATTEND Internal Medicine
PROC: 0DB78ZX Excision of Stomach, Pylorus, Via Natural or Artificial Opening Endoscopic, Diagnostic (ICD-10-PCS; principal; 2020-04-25 08:30)
DX: J45.901 Unspecified asthma with (acute) exacerbation (principal); J98.09 Other diseases of bronchus, not elsewhere classified; J98.11 Atelectasis; Z91.013 Allergy to seafood; Z68.34 Body mass index [BMI] 34.0-34.9, adult; Z87.891 Personal history of nicotine dependence

== ENCOUNTER → 2020-04-22 | Outpatient (CLI) | payer OTHER ==
[~2020-04-22] MED LIST: ALB2.5NEB INH; PANT40TA29 PO; PRED10TA2 PO; PROAAER10 INH; SYMB80INH INH
--- NOTE | 2020-04-29 14:59 | REP ---
CHEST X-RAY: 2-VIEWS HISTORY: Increased sputum. COMPARISON: None. FINDINGS: There is lobar atelectasis in the left lower lobe. Lung soni are otherwise clear. Pleural angles are sharp. Heart is not enlarged. No evidence of hilar or mediastinal mass is appreciated. IMPRESSION: Lobar collapse left lower lobe. MTDD
== END ==
LOC: M RAD 08:40 → EDBD 08:40
PROVIDERS: ATTEND Surgery
DX: R06.2 Wheezing (principal); J98.11 Atelectasis

== ENCOUNTER → 2020-05-03 | Outpatient (CLI) | payer OTHER ==
--- NOTE | 2020-05-09 12:36 | REP ---
CHEST X-RAY: TWO VIEWS HISTORY: Pulmonary follow up. COMPARISON: Comparison chest x-ray April 25, 2020. Comparison chest CT study April 26, 2020. FINDINGS: The previously noted left lower lobe atelectasis has significantly improved. There is minimal linear platelike atelectasis along the major fissure at the base of the left lung on lateral radiograph. Lung soni are otherwise clear. Cardiomediastinal silhouette is unremarkable. IMPRESSION: Markedly improved atelectasis changes left lower lobe. MTDD
== END ==
LOC: M RAD 08:21
PROVIDERS: ATTEND Surgery
DX: J98.11 Atelectasis (principal)